=== PATIENT | male | born 1945 | race Caucasian/White ===

== ENCOUNTER 2016-09-28 14:52 | Emergency (ER) | payer OTHER, BC ==
[2016-09-28] MEDS ORDERED: FAMOTIDINE 20 MG TAB PO ONE (15:11)
[2016-09-28] MEDS ORDERED: predniSONE 20 MG TAB PO ONE (15:11)
[2016-09-28] MEDS ORDERED: diphenhydrAMINE 25 MG CAP PO ONE (15:11)
--- NOTE | 2016-09-28 15:13 | EDPHY ---
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 He did not use his EpiPen as he was asymptomatic. Comes to the ER for concerns that he may develop an allergic reaction. He states the area was initially erythematous and has progressively become more clear. He denies: Chest pain, dyspnea, dysphagia, odynophagia, wheezing, abdominal pain, nausea, rash. 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 Appears to be in no acute distress. Smiling. Observed ambulating without assistance. Shakes my hand. 2) HEAD: Normocephalic, atraumatic 3) HEENT: Pupils equal, round, reactive to light bilaterally. Sclera anicteric. Nasopharynx, oropharynx, clear, no lesions. No tonsillar glossal enlargement. No trismus or drooling. Ears bilaterally with normal tympanic membranes. 4) NECK: Full range of motion, no meningeal signs. 5) LUNGS: Clear auscultation bilaterally, no wheezes, no rhonchi, no retractions. 6) HEART: Regular rate and rhythm, no murmur, no heave, no gallop. 7) ABDOMEN: No guarding, no rebound, no focal tenderness, 8) MUSCULOSKELETAL: Moving all extremities, no focal areas of tenderness, no obvious trauma. No peripheral edema or discoloration. 9) BACK: no visual or palpable abnormality. 10) SKIN: faint erythema the clavicular notch with no stinger visible. Otherwise no rash no urticaria 11) Psychiatric: Patient is oriented X 3, there is no agitation. DIFFERENTIAL DIAGNOSIS: in no particular order including but limited to urticaria, anaphylaxis, hypersensitivity reaction Smoking Status: Never smoked Constitutional: Initial Vital Signs Temperature (C) 36.7 C 09/28/16 14:55 Heart Rate 76 09/28/16 14:55 Respiratory Rate 16 09/28/16 14:55 Blood Pressure 140/78 H 09/28/16 14:55 O2 Sat (%) 96 09/28/16 14:55 O2 Delivery Mode Room Air Allergies/Adverse Reactions: No Known Allergies Allergy (Unverified 09/28/16 15:14) Home Medications: Medication Instructions Recorded NK [No Known Home Meds] 09/28/16 MDM/Departure - MDM Medications Given: Discontinued Medications Diphenhydramine HCl (Benadryl) 50 mg PO EDNOW ONE Stop: 09/28/16 15:12 Last Admin: 09/28/16 15:21 Dose: 50 mg Famotidine (Pepcid) 40 mg PO EDNOW ONE Stop: 09/28/16 15:12 Last Admin: 09/28/16 15:21 Dose: 40 mg Prednisone (Prednisone) 60 mg PO EDNOW ONE Stop: 09/28/16 15:12 Last Admin: 09/28/16 15:21 Dose: 60 mg ED Course/Re-evaluation: 3:15 p.m.: This patient currently appears well. Doubt anaphylaxis. I do not think that the benefits of epinephrine outweigh the risks at this point. Will administer oral H1 H2 chloe and prednisone and observed for a period of time in the ER. 4:08 p.m.: Re-evaluation, he is sleeping, easily woken. Re-examined by myself. Lungs are clear bilaterally, airway is patent, there is no rash or signs of reaction at his sting site. Plan will be discharged home with usual and customary allergic reaction precautions instructions. He has sufficient supply of EpiPen at home. Doubt anaphylaxis.Care and management in consultation with secondary supervising physician Dr Goodson . - Depart Disposition: Home, Routine, Self-Care Clinical Impression: Wasp sting Qualifiers: Encounter type: sequela Injury intent: undetermined intent Qualified Code(s): T63.464S - Toxic effect of venom of wasps, undetermined, sequela Condition: Good Instructions: Insect Bite or Sting (ED) Additional Instructions: If you developed allergic reaction like symptoms such as shortness of breath, rash, difficulty swallowing or any other symptoms, immediately use your EpiPen and call 911 Referrals: NABIL CHANEY [Primary Care Provider] - 1-2 days without fail
[2016-09-28 16:15] VITALS: BP 118/70; PULSE 73; RESP 19; TEMP 97.9; O2SAT 94
== END 2016-09-28 16:21 | disposition home or self-care (01) ==
DX: T63.461S Toxic effect of venom of wasps, accidental (unintentional), sequela (principal)